=== PATIENT | female | born 2000 | race Caucasian/White ===

== ENCOUNTER 2018-11-22 10:58 | Emergency (ER) | payer OTHER ==
[2018-11-22 11:48] LABS: BASO % 1 % (0-3); EOS # 0.1 x10^3/uL (0.0-0.7); EOS % 2 % (0-3); HEMOGLOBIN 13.9 g/dL (12.0-15.5); LYMPH % 32 % (24-48); MEAN CORPUSCULAR HEMOGLOBIN 28 pg (25-35); MEAN CORPUSCULAR HGB CONC 33 g/dL (31-37); MEAN CORPUSCULAR VOLUME 85 fL (79-100); MONO # 0.5 x10^3/uL (0.0-1.1); MONO % 9 % (0-9); NEUT # 3.6 x10^3uL (1.8-7.7); NEUT % 57 % (31-73); PLATELET COUNT 235 x10^3/uL (140-400); RED BLOOD COUNT 4.96 x10^6/uL (3.50-5.40); RED CELL DISTRIBUTION WIDTH 13.5 % (11.5-14.5); WHITE BLOOD COUNT 6.2 x10^3/uL (4.0-11.0)
[2018-11-22] MEDS ORDERED: KETOROLAC 15 MG/ML VIAL. IVP ONE (11:55)
[2018-11-22 11:59] LABS: BACTERIA,URINE 0 /HPF (0-FEW); BILIRUBIN,URINE NEG (NEG); CLARITY,URINE CLEAR; COLOR,URINE YELLOW; GLUCOSE,URINE NEG (NEG); NITRITE,URINE NEG (NEG); SQUAMOUS EPITHELIAL CELL,UR FEW /LPF; UROBILINOGEN,URINE 0.2 mg/dL (0.2 mg/dL)
[2018-11-22 12:07] LABS: ALBUMIN 3.4 g/dL (3.4-5.0); ALBUMIN/GLOBULIN RATIO 0.9 (1.0-1.7); CALCIUM 8.6 mg/dL (8.5-10.1); CREATININE 0.7 mg/dL (0.6-1.0); GFR 106.7; MAGNESIUM 1.8 mg/dL (1.8-2.4); POTASSIUM 3.8 mmol/L (3.5-5.1); TOTAL BILIRUBIN 0.2 mg/dL (0.2-1.0); TOTAL PROTEIN 7.2 g/dL (6.4-8.2)
[2018-11-22] MEDS ORDERED: IOHEXOL 300 MG/ML 75 ML VIAL. IV ONE (12:15)
--- NOTE | 2018-11-22 12:34 | RAD ---
Study: CT abdomen/pelvis with intravenous contrast Indication: Right lower quadrant pain. Clinical concern for appendicitis. Comparison: None. Technique: Helical CT imaging performed of the abdomen and pelvis after the intravenous administration of contrast. Sagittal and coronal reformats were obtained. One or more of the following individualized dose reduction techniques were utilized for this examination: 1. Automated exposure control 2. Adjustment of the mA and/or kV according to patient size 3. Use of iterative reconstruction technique. Findings: Unremarkable lower lungs and visualized heart. Unremarkable liver, gallbladder, pancreas, adrenal glands and spleen. Unremarkable kidneys and collecting system. Tiny hypoattenuating foci at the anterior aspect of the urinary bladder, images 81 and 82 series 2. No significant bladder wall thickening. Unremarkable uterus given patient age. Right ovarian cystic focus, image 76 series 2, measuring 2.7 x 2.3 cm. Unremarkable left ovary. The colon and appendix are normal. The small bowel is normal. Unremarkable stomach and distal esophagus. Incidental note made of circumaortic left renal venous drainage. No free pelvic fluid. No free air. Transitional lumbosacral anatomy with a mostly lumbarized S1 vertebral body and a pseudoarticulation present on the right. Impression: 1. The appendix is normal. A relatively small right ovarian cyst measuring up to 2.7 cm is not unusual given patient age and there are no surrounding inflammatory changes. 2. Note is made of two adjacent punctate foci of low attenuation at the anterior aspect of the urinary bladder. Though too small to fully characterize, this could represent a tiny amount of air which can be associated with a urinary tract infection. Consider correlation with urinalysis. Electronically signed by: TORY RAINEY MD (11/22/2018 12:31 PM) [facility]
--- NOTE | 2018-11-22 13:04 | RAD ---
Transabdominal transvaginal sonography of the pelvis Clinical indications: Right pelvic pain. History of ovarian cysts. Transabdominal sonography: The uterus is anteverted in position. The longitudinal and AP and transverse dimensions of the uterus are 8.2 cm and 3.6 cm and 4.1 cm respectively. Endometrial canal is poorly visualized. Therefore transvaginal sonography will be performed. Right ovary measures 3.5 cm x 2.5 cm x 2.3 cm in size and there is a prominent cyst within it. The left ovary is poorly visualized by transabdominal exam. No free fluid is evident. Transvaginal sonography: The endometrial canal measures 11 mm in thickness. No uterine fibroid mass is seen. No free fluid is seen within the cul-de-sac. Left ovary measures 2.0 cm and 2.7 cm and 1.8 cm in size and is normal. Color Doppler flow is seen within left ovary. The right ovary measures up to 3.4 cm in greatest dimension. It contains a 2.2 cm cyst. Color Doppler flow is seen within the ovarian parenchyma around the cyst. No free fluid is evident. IMPRESSION: 2.2 cm right ovarian cyst. Electronically signed by: Hu Monk MD (11/22/2018 1:01 PM) [facility]
--- NOTE | 2018-11-22 13:43 | PHYS DOC ---
Past History Past Medical History: Anxiety, Bipolar, Depression, Other Additional Past Medical Histor: right ovarian cyst Past Surgical History: No Surgical History Smoking: Non-smoker Alcohol Use: None Drug Use: Marijuana Adult General Chief Complaint Chief Complaint: ABDOMINAL PAIN HPI HPI 18-year-old female presents with 2 day history of right lower quadrant abdominal pain. Reports associated nausea and vomiting. Denies fever. Denies dysuria or hematuria. Denies . Reports last menstrual period 10/07/18. Patient reports history of known right ovarian cyst. Denies vaginal discharge. Review of Systems Review of Systems Constitutional: Denies fever or chills Eyes: Denies redness or eye pain HENT: Denies nasal congestion or sore throat Respiratory: Denies cough or shortness of breath Cardiovascular: Denies chest pain or palpitations GI: Reports abdominal pain, nausea, and vomiting : Denies dysuria or hematuria Musculoskeletal: Denies back pain or joint pain Integument: Denies rash or skin lesions Neurologic: Denies headache, focal weakness or sensory changes Complete systems were reviewed and found to be within normal limits, except as documented in this note. Current Medications Current Medications Current Medications Medications (Trade) Dose Ordered Sig/Kayleigh Start Time Stop Time Status Last Admin Dose Admin Iohexol (Omnipaque 300 Mg/ml) 75 ml 1X ONCE 11/22/18 12:15 11/22/18 12:16 DC 11/22/18 12:09 75 ML Ketorolac Tromethamine (Toradol 15mg Vial) 15 mg 1X ONCE 11/22/18 11:55 11/22/18 11:56 DC 11/22/18 11:56 15 MG Allergies Allergies Allergies Coded Allergies Type Severity Reaction Last Updated Verified sulfamethoxazole Allergy Unknown Rash 11/22/18 Yes trimethoprim Allergy Unknown Rash 11/22/18 Yes Physical Exam Physical Exam Constitutional: Well developed, well nourished, no acute distress, non-toxic appearance HENT: Normocephalic, atraumatic, oropharynx moist Eyes: Conjunctiva normal, no discharge Neck: Normal range of motion, no tenderness, supple Cardiovascular: Heart rate normal, regular rhythm Lungs & Thorax: Bilateral breath sounds clear to auscultation, no wheezing Abdomen: Soft, RLQ tenderness, no guarding/rebound tenderness/distention Skin: Warm, dry, no erythema, no rash Back: No tenderness, no CVA tenderness Extremities: No tenderness, ROM intact, no edema Neurologic: Alert and oriented X 3, no focal deficits noted Psychologic: Affect normal, judgement normal Current Patient Data Vital Signs Vital Signs Date Time Temp Pulse Resp B/P (MAP) Pulse Ox O2 Delivery O2 Flow Rate FiO2 11/22/18 12:00 78 18 111/64 (80) 98 Room Air 11/22/18 11:06 98.4 Lab Results Laboratory Tests Test 11/22/18 11:20 11/22/18 11:29 11/22/18 11:33 Urine Collection Type Void Urine Color Yellow Urine Clarity Clear Urine pH 7.0 Urine Specific [place] 1.015 Urine Protein Neg (NEG-TRACE) Urine Glucose (UA) Neg mg/dL (NEG) Urine Ketones (Stick) Neg mg/dL (NEG) Urine Blood Trace (NEG) Urine Nitrite Neg (NEG) Urine Bilirubin Neg (NEG) Urine Urobilinogen Dipstick 0.2 mg/dL (0.2 mg/dL) Urine Leukocyte Esterase Neg (NEG) Urine RBC 1-2 /HPF (0-2) Urine WBC 1-4 /HPF (0-4) Urine Squamous Epithelial Cells Few /LPF Urine Bacteria 0 /HPF (0-FEW) POC Urine HCG, Qualitative hcg negative (Negative) White Blood Count 6.2 x10^3/uL (4.0-11.0) Red Blood Count 4.96 x10^6/uL (3.50-5.40) Hemoglobin 13.9 g/dL (12.0-15.5) Hematocrit 42.0 % (36.0-47.0) Mean Corpuscular Volume 85 fL (79-100) Mean Corpuscular Hemoglobin 28 pg (25-35) Mean Corpuscular Hemoglobin Concent 33 g/dL (31-37) Red Cell Distribution Width 13.5 % (11.5-14.5) Platelet Count 235 x10^3/uL (140-400) Neutrophils (%) (Auto) 57 % (31-73) Lymphocytes (%) (Auto) 32 % (24-48) Monocytes (%) (Auto) 9 % (0-9) Eosinophils (%) (Auto) 2 % (0-3) Basophils (%) (Auto) 1 % (0-3) Neutrophils # (Auto) 3.6 x10^3uL (1.8-7.7) Lymphocytes # (Auto) 2.0 x10^3/uL (1.0-4.8) Monocytes # (Auto) 0.5 x10^3/uL (0.0-1.1) Eosinophils # (Auto) 0.1 x10^3/uL (0.0-0.7) Basophils # (Auto) 0.0 x10^3/uL (0.0-0.2) Sodium Level 141 mmol/L (136-145) Potassium Level 3.8 mmol/L (3.5-5.1) Chloride Level 106 mmol/L (98-107) Carbon Dioxide Level 28 mmol/L (21-32) Anion Gap 7 (6-14) Blood Urea Nitrogen 7 mg/dL (7-20) Creatinine 0.7 mg/dL (0.6-1.0) Estimated GFR (Cockcroft-Gault) 106.7 BUN/Creatinine Ratio 10 (6-20) Glucose Level 80 mg/dL (70-99) Calcium Level 8.6 mg/dL (8.5-10.1) Magnesium Level 1.8 mg/dL (1.8-2.4) Total Bilirubin 0.2 mg/dL (0.2-1.0) Aspartate Amino Transferase (AST) 15 U/L (15-37) Alanine Aminotransferase (ALT) 19 U/L (14-59) Alkaline Phosphatase 79 U/L (46-116) Total Protein 7.2 g/dL (6.4-8.2) Albumin 3.4 g/dL (3.4-5.0) Albumin/Globulin Ratio 0.9 (1.0-1.7) L Lipase 203 U/L (73-393) EKG EKG [] Radiology/Procedures Radiology/Procedures PROCEDURE: US PELVIS W/TV Transabdominal transvaginal sonography of the pelvis Clinical indications: Right pelvic pain. History of ovarian cysts. Transabdominal sonography: The uterus is anteverted in position. The longitudinal and AP and transverse dimensions of the uterus are 8.2 cm and 3.6 cm and 4.1 cm respectively. Endometrial canal is poorly visualized. Therefore transvaginal sonography will be performed. Right ovary measures 3.5 cm x 2.5 cm x 2.3 cm in size and there is a prominent cyst within it. The left ovary is poorly visualized by transabdominal exam. No free fluid is evident. Transvaginal sonography: The endometrial canal measures 11 mm in thickness. No uterine fibroid mass is seen. No free fluid is seen within the cul-de-sac. Left ovary measures 2.0 cm and 2.7 cm and 1.8 cm in size and is normal. Color Doppler flow is seen within left ovary. The right ovary measures up to 3.4 cm in greatest dimension. It contains a 2.2 cm cyst. Color Doppler flow is seen within the ovarian parenchyma around the cyst. No free fluid is evident. IMPRESSION: 2.2 cm right ovarian cyst. Electronically signed by: Hu Monk MD (11/22/2018 1:01 PM) [facility] PROCEDURE: CT ABD PELV W/ IV CONTRST ONLY Study: CT abdomen/pelvis with intravenous contrast Indication: Right lower quadrant pain. Clinical concern for appendicitis. Comparison: None. Technique: Helical CT imaging performed of the abdomen and pelvis after the intravenous administration of contrast. Sagittal and coronal reformats were obtained. One or more of the following individualized dose reduction techniques were utilized for this examination: 1. Automated exposure control 2. Adjustment of the mA and/or kV according to patient size 3. Use of iterative reconstruction technique. Findings: Unremarkable lower lungs and visualized heart. Unremarkable liver, gallbladder, pancreas, adrenal glands and spleen. Unremarkable kidneys and collecting system. Tiny hypoattenuating foci at the anterior aspect of the urinary bladder, images 81 and 82 series 2. No significant bladder wall thickening. Unremarkable uterus given patient age. Right ovarian cystic focus, image 76 series 2, measuring 2.7 x 2.3 cm. Unremarkable left ovary. The colon and appendix are normal. The small bowel is normal. Unremarkable stomach and distal esophagus. Incidental note made of circumaortic left renal venous drainage. No free pelvic fluid. No free air. Transitional lumbosacral anatomy with a mostly lumbarized S1 vertebral body and a pseudoarticulation present on the right. Impression: 1. The appendix is normal. A relatively small right ovarian cyst measuring up to 2.7 cm is not unusual given patient age and there are no surrounding inflammatory changes. 2. Note is made of two adjacent punctate foci of low attenuation at the anterior aspect of the urinary bladder. Though too small to fully characterize, this could represent a tiny amount of air which can be associated with a urinary tract infection. Consider correlation with urinalysis. Electronically signed by: TORY RAINEY MD (11/22/2018 12:31 PM) [facility] Course & Med Decision Making Course & Med Decision Making Pertinent Labs and Imaging studies reviewed. (See chart for details) Patient presents with right lower quadrant abdominal pain with associated nausea and vomiting. Patient with history of known right ovarian cyst. Patient reports pain appears different than prior episodes. Pain/nausea addressed. IV fluid hydration given. Labs obtained and posted to chart. Pelvic ultrasound with findings consistent for right ovarian cyst without torsion. CT head/pelvis without acute process. Patient stable for discharge with outpatient follow-up with PCP/COMPUTER COMPOSITOR. Discussed findings and plan with patient, who acknowledges understanding and agreement. Dragon Disclaimer Dragon Disclaimer This electronic medical record was generated, in whole or in part, using a voice recognition dictation system. Departure Departure: Impression: Primary Impression: Ovarian cyst Disposition: HOME, SELF-CARE Condition: STABLE Referrals: PCP,UNKNOWN (PCP) Patient Instructions: Ovarian Cyst, [id number] Additional Instructions: Please use over the counter Tylenol and Ibuprofen for pain or discomfort as ne eded. Problem Qualifiers Primary Impression: Ovarian cyst Laterality: right Qualified Codes: N83.201 - Unspecified ovarian cyst, right side CESAR VEGA DO Nov 22, 2018 13:43
[2018-11-22 13:55] VITALS: BP 110/60
== END 2018-11-22 14:01 | disposition home or self-care (01) ==
LOC: ER 10:58
DX: N83.201 Unspecified ovarian cyst, right side (principal); Z79.899 Other long term (current) drug therapy; Z88.2 Allergy status to sulfonamides; Z88.1 Allergy status to other antibiotic agents
CPT/HCPCS: 36415; 74177; 76830; 76856; 80053; 81001; 81025; 83690; 83735; 85025; 96374; 99285; J1885; Q9967

== ENCOUNTER 2018-12-25 11:13 | Emergency (ER) | payer OTHER ==
[2018-12-25] MEDS ORDERED: IV NORMAL SALINE 1,000ML 1,000 ML IV ONE (11:45)
[2018-12-25 12:06] LABS: BASO % 1 % (0-3); EOS # 0.1 x10^3/uL (0.0-0.7); EOS % 1 % (0-3); HEMATOCRIT 44.2 % (36.0-47.0); HEMOGLOBIN 14.3 g/dL (12.0-15.5); LYMPH # 2.1 x10^3/uL (1.0-4.8); LYMPH % 33 % (24-48); MEAN CORPUSCULAR HEMOGLOBIN 28 pg (25-35); MEAN CORPUSCULAR HGB CONC 33 g/dL (31-37); MEAN CORPUSCULAR VOLUME 85 fL (79-100); MONO # 0.4 x10^3/uL (0.0-1.1); MONO % 7 % (0-9); NEUT # 3.8 x10^3uL (1.8-7.7); NEUT % 59 % (31-73); PLATELET COUNT 257 x10^3/uL (140-400); RED BLOOD COUNT 5.19 x10^6/uL (3.50-5.40); RED CELL DISTRIBUTION WIDTH 13.6 % (11.5-14.5); WHITE BLOOD COUNT 6.5 x10^3/uL (4.0-11.0)
[2018-12-25 12:21] LABS: ALBUMIN 3.7 g/dL (3.4-5.0); ALBUMIN/GLOBULIN RATIO 0.9 (1.0-1.7); CALCIUM 9.1 mg/dL (8.5-10.1); CREATININE 0.6 mg/dL (0.6-1.0); GFR 127.5; POTASSIUM 3.9 mmol/L (3.5-5.1); TOTAL BILIRUBIN 0.2 mg/dL (0.2-1.0)
[2018-12-25] MEDS ORDERED: hydrOXYzine HCL 10 MG TABLET PO STA (12:36)
[2018-12-25 12:38] LABS: AMPHETAMINE/METHAMPHETAMINE NEG (NEG); BARBITURATES NEG (NEG); BENZODIAZEPINES NEG (NEG); CANNABINOIDS NEG (NEG); COCAINE NEG (NEG); METHADONE NEG (NEG); OPIATES NEG (NEG); PHENCYCLIDINE NEG (NEG)
[2018-12-25] MEDS ORDERED: hydrOXYzine HCL 25 MG TABLET ONE (12:42)
[2018-12-25] MEDS ORDERED: hydrOXYzine HCL 25 MG TABLET PO STA (12:43)
[2018-12-25] MEDS ORDERED: ONDANSETRON ODT 4 MG TAB.RAPDIS ONE (12:44)
[2018-12-25] MEDS ORDERED: ONDANSETRON ODT 4 MG TAB.RAPDIS PO ONE (12:45)
--- NOTE | 2018-12-25 12:48 | PHYS DOC ---
Past History Past Medical History: Anxiety, Bipolar, Depression, Other Additional Past Medical Histor: right ovarian cyst Past Surgical History: No Surgical History Smoking: Non-smoker Alcohol Use: None Drug Use: Marijuana Adult General Chief Complaint Chief Complaint: DIZZY/LIGHT HEADED HPI HPI 18-year-old female presents with 2 day history of dizziness. The patient states that she started to feel lightheaded and off balance yesterday. This appeared to start out of nowhere. She has had intermittent episodes like this over the last several weeks, but they're less severe. She has not been doing anything different. She's been eating and drinking normally. She has not had any alcohol and 2 days. She only drinks once a week or less. She smoked marijuana one month ago. She vapes once a week. She has not noticed any association with food. She that she was hungry this morning when she had some nausea, but eating did not ma ke a difference to her symptoms. She has not been vomiting. Denies fever or chills. She is sexually active. Her last menses was one month ago. Review of Systems Review of Systems Constitutional: Denies fever or chills [] Eyes: Denies change in visual acuity, redness, or eye pain [] HENT: Denies nasal congestion or sore throat [] Respiratory: Denies cough or shortness of breath [] Cardiovascular: No additional information not addressed in HPI [] GI: Nausea. Denies abdominal pain, vomiting, bloody stools or diarrhea [] : Denies dysuria or hematuria [] Musculoskeletal: Denies back pain or joint pain [] Integument: Denies rash or skin lesions [] Neurologic: Dizziness. Denies headache, focal weakness or sensory changes [] Endocrine: Denies polyuria or polydipsia [] All other systems were reviewed and found to be within normal limits, except as documented in this note. Current Medications Current Medications Current Medications Medications (Trade) Dose Ordered Sig/Kayleigh Start Time Stop Time Status Last Admin Dose Admin Hydroxyzine HCl (Atarax) 25 mg STK-MED ONCE 12/25/18 12:42 12/25/18 12:42 DC Ondansetron HCl (Zofran Odt) 4 mg STK-MED ONCE 12/25/18 12:44 12/25/18 12:44 DC Sodium Chloride 1,000 ml @ 1,000 mls/hr 1X ONCE 12/25/18 11:45 12/25/18 12:44 DC 12/25/18 11:45 1,000 MLS/HR Allergies Allergies Allergies Coded Allergies Type Severity Reaction Last Updated Verified sulfamethoxazole Allergy Unknown Rash 11/22/18 Yes trimethoprim Allergy Unknown Rash 11/22/18 Yes Physical Exam Physical Exam Constitutional: Well developed, well nourished, no acute distress, non-toxic appearance. [] HENT: Normocephalic, atraumatic, bilateral external ears normal, oropharynx moist, no oral exudates, nose normal. [] Eyes: PERRLA, EOMI, conjunctiva normal, no discharge. [] Neck: Normal range of motion, no tenderness, supple, no stridor. [] Cardiovascular:Heart rate regular rhythm, no murmur [] Lungs & Thorax: Bilateral breath sounds clear to auscultation [] Abdomen: Bowel sounds normal, soft, no tenderness, no masses, no pulsatile masses. [] Skin: Warm, dry, no erythema, no rash. [] Back: No tenderness, no CVA tenderness. [] Extremities: No tenderness, no cyanosis, no clubbing, ROM intact, no edema. [] Neurologic: Alert and oriented X 3, normal motor function, normal sensory function, no focal deficits noted. [] Psychologic: Affect normal, judgement normal, mood normal. [] Current Patient Data Vital Signs Vital Signs Date Time Temp Pulse Resp B/P (MAP) Pulse Ox O2 Delivery O2 Flow Rate FiO2 12/25/18 11:13 98.1 67 18 96 Room Air Lab Results Laboratory Tests Test 12/25/18 11:51 12/25/18 11:55 12/25/18 11:58 White Blood Count 6.5 x10^3/uL (4.0-11.0) Red Blood Count 5.19 x10^6/uL (3.50-5.40) Hemoglobin 14.3 g/dL (12.0-15.5) Hematocrit 44.2 % (36.0-47.0) Mean Corpuscular Volume 85 fL (79-100) Mean Corpuscular Hemoglobin 28 pg (25-35) Mean Corpuscular Hemoglobin Concent 33 g/dL (31-37) Red Cell Distribution Width 13.6 % (11.5-14.5) Platelet Count 257 x10^3/uL (140-400) Neutrophils (%) (Auto) 59 % (31-73) Lymphocytes (%) (Auto) 33 % (24-48) Monocytes (%) (Auto) 7 % (0-9) Eosinophils (%) (Auto) 1 % (0-3) Basophils (%) (Auto) 1 % (0-3) Neutrophils # (Auto) 3.8 x10^3uL (1.8-7.7) Lymphocytes # (Auto) 2.1 x10^3/uL (1.0-4.8) Monocytes # (Auto) 0.4 x10^3/uL (0.0-1.1) Eosinophils # (Auto) 0.1 x10^3/uL (0.0-0.7) Basophils # (Auto) 0.0 x10^3/uL (0.0-0.2) Sodium Level 142 mmol/L (136-145) Potassium Level 3.9 mmol/L (3.5-5.1) Chloride Level 104 mmol/L (98-107) Carbon Dioxide Level 27 mmol/L (21-32) Anion Gap 11 (6-14) Blood Urea Nitrogen 10 mg/dL (7-20) Creatinine 0.6 mg/dL (0.6-1.0) Estimated GFR (Cockcroft-Gault) 127.5 BUN/Creatinine Ratio 17 (6-20) Glucose Level 84 mg/dL (70-99) Calcium Level 9.1 mg/dL (8.5-10.1) Total Bilirubin 0.2 mg/dL (0.2-1.0) Aspartate Amino Transferase (AST) 17 U/L (15-37) Alanine Aminotransferase (ALT) 21 U/L (14-59) Alkaline Phosphatase 89 U/L (46-116) Total Protein 8.0 g/dL (6.4-8.2) Albumin 3.7 g/dL (3.4-5.0) Albumin/Globulin Ratio 0.9 (1.0-1.7) L Urine Opiates Screen Neg (NEG) Urine Methadone Screen Neg (NEG) Urine Barbiturates Neg (NEG) Urine Phencyclidine Screen Neg (NEG) Urine Amphetamine/Methamphetamine Neg (NEG) Urine Benzodiazepines Screen Neg (NEG) Urine Cocaine Screen Neg (NEG) Urine Cannabinoids Screen Neg (NEG) Urine Ethyl Alcohol Neg (NEG) POC Urine HCG, Qualitative hcg negative (Negative) EKG EKG [] Radiology/Procedures Radiology/Procedures [] Course & Med Decision Making Course & Med Decision Making Pertinent Labs and Imaging studies reviewed. (See chart for details) The patient's labs are unremarkable. She was given normal saline and hydroxyzine. Lightheadedness is improved. I do not see any central cause for her dizziness. On examining her ears, she did have occlusive wax in the right ear. I was able to remove it with a lighted curet. She had improvement in hearing. I will discharge her with prescription for meclizine in case she has further symptoms. She will follow up with her primary physician as needed. She is stable for discharge at this time. [] Dragon Disclaimer Dragon Disclaimer This electronic medical record was generated, in whole or in part, using a voice recognition dictation system. Departure Departure: Impression: Primary Impression: Dizziness Additional Impression: Impacted cerumen of right ear Disposition: 01 HOME, SELF-CARE Condition: IMPROVED Referrals: ISIAH JUSTICE DO (PCP) Patient Instructions: Dizziness, [id number] Scripts Meclizine Hcl (MECLIZINE HCL) 12.5 Mg Tablet 1 TAB PO TID PRN for DIZZINESS, #30 TAB Prov: GRICELDA ANDRES DO 12/25/18 Problem Qualifiers GRICELDA ANDRES DO Dec 25, 2018 12:48
[2018-12-25 13:04] LABS: BACTERIA,URINE FEW /HPF (0-FEW); BILIRUBIN,URINE NEG (NEG); CLARITY,URINE HAZY; COLOR,URINE YELLOW; GLUCOSE,URINE NEG (NEG); NITRITE,URINE NEG (NEG); SQUAMOUS EPITHELIAL CELL,UR MOD /LPF; UROBILINOGEN,URINE 0.2 mg/dL (0.2 mg/dL); WBC,URINE RARE /HPF (0-4)
[2018-12-25] MEDS ORDERED: MECL12.52 PO (14:09)
[2018-12-25 14:23] VITALS: BP 105/70
== END 2018-12-25 14:27 | disposition home or self-care (01) ==
LOC: ER 11:13
DX: R42 Dizziness and giddiness (principal); H61.21 Impacted cerumen, right ear; Z88.1 Allergy status to other antibiotic agents; Z88.2 Allergy status to sulfonamides
CPT/HCPCS: 36415; 69210; 80053; 80307; 81001; 81025; 85025; 96360; 99284; Q0162; J7030

== ENCOUNTER 2019-03-27 03:13 | Emergency (ER) | payer OTHER ==
[~2019-03-27] VITALS: Ht 157.5 cm; Wt 81.3 kg
[~2019-03-27 03:13] MED LIST: MECL12.573 PO
--- NOTE | 2019-03-27 03:41 | PHYS DOC ---
Past History Past Medical History: Anxiety, Bipolar, Depression, Other Additional Past Medical Histor: right ovarian cyst Past Surgical History: No Surgical History Smoking: Non-smoker Alcohol Use: Rarely Drug Use: Marijuana Adult General Chief Complaint Chief Complaint: ABDOMINAL PAIN.." I am having pain around my belly button area... ".." And my period has not started.. " "... I also have not had a stool..." HPI HPI Patient is a 18 year old female who presents with above hx and complaints of abdomen at her umbilicus. Patient concerned she may be . Patient also admits to no specific stool in the last couple days. Patient concerned because her period is not started. No history immunosuppression. No history of bad food intake. No history of travel. No history of trauma. Pain is localized around the umbilicus. No vaginal discharge. Has had ovarian cysts in past. Review of Systems Review of Systems Constitutional: Denies fever or chills [] Eyes: Denies change in visual acuity, redness, or eye pain [] HENT: Denies nasal congestion or sore throat [] Respiratory: Denies cough or shortness of breath [] Cardiovascular: No additional information not addressed in HPI [] GI: Has complaints of colitis abdominal pain, nausea. And constipation. Denies vomiting, bloody stools or diarrhea [] : Denies dysuria or hematuria [] Musculoskeletal: Denies back pain or joint pain [] Integument: Denies rash or skin lesions [] Neurologic: Denies headache, focal weakness or sensory changes [] Endocrine: Denies polyuria or polydipsia [] All other systems were reviewed and found to be within normal limits, except as documented in this note. Family History Family History Noncontributory Current Medications Current Medications See nursing for home meds Allergies Allergies Allergies Coded Allergies Type Severity Reaction Last Updated Verified sulfamethoxazole Allergy Unknown Rash 11/22/18 Yes trimethoprim Allergy Unknown Rash 11/22/18 Yes Physical Exam Physical Exam Constitutional: no acute distress, non-toxic appearance. [] HENT: Normocephalic, atraumatic, bilateral external ears normal, oropharynx moist, no oral exudates, nose normal. [] Eyes: PERRLA, EOMI, conjunctiva normal, no discharge. [] Neck: Normal range of motion, no tenderness, supple, no stridor. [] Cardiovascular:Heart rate regular rhythm, no murmur [] Lungs & Thorax: Bilateral breath sounds clear to auscultation [] Abdomen: Bowel sounds normal, soft, mild tenderness at umbilicus, no masses, no pulsatile masses. Abdomen very distended. No true rebound pain Skin: Warm, dry, no erythema, no rash. [] Back: No tenderness, no CVA tenderness. [] Extremities: No tenderness, no cyanosis, no clubbing, ROM intact, no edema. No psoas sign. Is able to jump up and down without pain Neurologic: Alert and oriented X 3, normal motor function, normal sensory function, no focal deficits noted. [] Psychologic: Affect anxious, judgement normal, mood normal. [] Current Patient Data Vital Signs Vital Signs Date Time Temp Pulse Resp B/P (MAP) Pulse Ox O2 Delivery O2 Flow Rate FiO2 03/27/19 03:26 97.9 85 16 123/71 (88) 97 Room Air EKG EKG [] Radiology/Procedures Radiology/Procedures [][address] [address] IMAGING REPORT Signed PATIENT: YECENIA COLLINS ACCOUNT: [id number] : 09/21/1981 LOCATION: ER AGE: 37 SEX: F EXAM STATUS: REG ER ORD. PHYSICIAN: JOSÉ ANTONIO WEEKS MD REASON: pain PROCEDURE: ACUTE ABDOMEN SERIES Examination: ACUTE ABDOMEN SERIES History: Pain Comparison/Correlation: None Findings: Frontal view of the chest was obtained. Supine and upright views of the abdomen were obtained. Frontal view chest was obtained. Heart size and pulmonary vasculature are normal. No infiltrate or pleural effusion. Supine and upright views of the abdomen were obtained. Right upper quadrant surgical clips are present. No extraluminal gas. Moderate quantity of stool is present in the colon. No obstruction. No suspicious abdominal calcifications. Calcific densities within soft tissues lateral to the right iliac bone. This is of indeterminate significance and may represent an injection granuloma. Impression: No infiltrate. No obstruction. Electronically signed by: Preston Andersen MD (03/28/2019 7:53 AM) [id number] DICTATED AND SIGNED BY: PRESTON ANDERSEN MD DATE: 03/28/19 0753 CC: JOSÉ ANTONIO WEEKS MD; SERVANDO VEGA-Sanjeev ~ Course & Med Decision Making Course & Med Decision Making Pertinent Labs and Imaging studies reviewed. (See chart for details) Patient to take Tylenol and ibuprofen for pain. Patient push fluids. Patient follow-up with primary care. Patient expect some cramping with passage of stool burden. Must have re exam if no improvement of pain. Patient to remain on a clear fluid diet only no solids no milk products clear fluids to allow bowel rest. After passage of stool and no improvement pain must have re exam Impression: 1. Concerned she is because late period 2. Constipation [] Dragon Disclaimer Dragon Disclaimer This electronic medical record was generated, in whole or in part, using a voice recognition dictation system. Departure Departure: Disposition: 01 HOME/RESIDENCE PRIOR TO ADM Condition: STABLE Referrals: ISIAH JUSTICE DO (PCP) Oj Disclaimer This chart was dictated in whole or in part using Voice Recognition software in a busy, high-work load, and often noisy Emergency Department environment. It may contain unintended and wholly unrecognized errors or omissions. JOSÉ ANTONIO WEEKS MD Mar 27, 2019 03:41
[2019-03-27 04:17] LABS: U PREG PATIENT NEGATIVE (NEG)
[2019-03-27 04:18] LABS: BARBITURATES NEG (NEG); BENZODIAZEPINES NEG (NEG); CANNABINOIDS NEG (NEG); COCAINE NEG (NEG); METHADONE NEG (NEG); OPIATES NEG (NEG); PHENCYCLIDINE NEG (NEG)
[2019-03-27 04:20] LABS: AMPHETAMINE/METHAMPHETAMINE NEG (NEG)
[2019-03-27 04:30] LABS: BILIRUBIN,URINE NEG (NEG); CLARITY,URINE HAZY; COLOR,URINE YELLOW; GLUCOSE,URINE NEG (NEG)
[2019-03-27 04:31] LABS: BACTERIA,URINE MOD /HPF (0-FEW); NITRITE,URINE NEG (NEG); RBC,URINE OCC /HPF (0-2); SQUAMOUS EPITHELIAL CELL,UR MOD /LPF
--- NOTE | 2019-03-27 04:45 | RAD ---
INDICATION: Abdomen pain COMPARISON: November 22, 2018 IMPRESSION: Abdomen: 3 views of chest and abdomen obtained. Hypoexpanded exam of the chest with no definite focal airspace consolidation. Moderate stool within the right side of the colon. Air scattered throughout large and small bowel in a grossly nonobstructive pattern. Electronically signed by: Ari Rodriguez MD (03/27/2019 4:42 AM) [id number]
[2019-03-27] MEDS ORDERED: ACETAMINOPHEN 500 MG TABLET PO ONE (05:00)
[2019-03-27] MEDS ORDERED: MAGNESIUM HYDROXIDE 2,400 MG/30 ML ORAL.SUSP. PO ONE (05:00)
[2019-03-27] MEDS ORDERED: MAGNESIUM CITRATE 296 ML SOLUTION. PO ONE (05:30)
[2019-03-27 05:39] LABS: INFLUENZA A PATIENT NEGATIVE (NEGATIVE); INFLUENZA B PATIENT NEGATIVE (NEGATIVE)
[2019-03-27 05:56] VITALS: BP 115/62
== END 2019-03-27 05:58 | disposition home or self-care (01) ==
LOC: ER 03:13
DX: K59.00 Constipation, unspecified (principal); Z88.2 Allergy status to sulfonamides; Z88.8 Allergy status to other drugs, medicaments and biological substances
CPT/HCPCS: 36415; 74022; 80307; 81001; 81025; 87086; 87186; 87804; 99284

== ENCOUNTER 2019-05-18 23:05 | Emergency (ER) | payer OTHER ==
[~2019-05-18] VITALS: Ht 157.5 cm; Wt 81.3 kg
--- NOTE | 2019-05-18 23:18 | PHYS DOC ---
Past History Past Medical History: Anxiety, Bipolar, Depression, Other Additional Past Medical Histor: right ovarian cyst Past Surgical History: No Surgical History Smoking: Non-smoker Alcohol Use: Rarely Drug Use: Marijuana General Adult EDM: Chief Complaint: ABDOMINAL PAIN HPI: HPI: ",, I ve been having some abdomen pain the past two weeks.. it not gone away.. my breast are so tended.. and I ve missed my period.. I think am about 5 or six week ...." Patient is a 18 year old female who presents with above hx and complaints of ab domen pain. Patient has history of 2 pregnancies previous resulted miscarriage. Miscarriage occurred approximately 4 months. Patient did receive RhoGam with previous . Patient thinks she is approximately one 1/2 months . Patient complaining of generalized lower pelvic pain and tender breast. Patient did eat a hot pocket approximately hour before presents emergency department. Patient states she has had abdomen pain for approximately 2 weeks. No history of STDs. 4 lifetime sex partners. No history of trauma. No history of bad food. Patient is on city water. No contact with sick animals. Patient does not do flu vaccination. Patient does take a vitamin.. Pt. follows with Dr. Gideon Hussein. Review of Systems: Review of Systems: Constitutional: Denies fever or chills Eyes: Denies change in visual acuity HENT: Denies nasal congestion or sore throat Respiratory: Denies cough or shortness of breath Cardiovascular: Denies chest pain or edema GI: Complains of lower abdominal pain, nausea, for the past 2 weeks. Patient denies vomiting, bloody stools or diarrhea : Denies dysuria Musculoskeletal: Denies back pain or joint pain Integument: Denies rash Neurologic: Denies headache, focal weakness or sensory changes Endocrine: Denies polyuria or polydipsia Lymphatic: Denies swollen glands Psychiatric: Denies depression or anxiety Heart Score: Risk Factors: Risk Factors: DM, Current or recent (<one month) smoker, HTN, HLP, family history of CAD, obesity. Risk Scores: Score 0 - 3: 2.5% MACE over next 6 weeks - Discharge Home Score 4 - 6: 20.3% MACE over next 6 weeks - Admit for Clinical Observation Score 7 - 10: 72.7% MACE over next 6 weeks - Early Invasive Strategies Family History: Family History: Noncontributory to presentation Current Medications: Current Meds: See nursing for home meds Allergies: Allergies: Allergies Coded Allergies Type Severity Reaction Last Updated Verified sulfamethoxazole Allergy Unknown Rash 11/22/18 Yes trimethoprim Allergy Unknown Rash 11/22/18 Yes Physical Exam: PE: Constitutional: Moderate acute distress, non-toxic appearance. [] HENT: Normocephalic, atraumatic, bilateral external ears normal, oropharynx m oist, no oral exudates, nose normal. Red Marcelle hair Eyes: PERRLA, EOMI, conjunctiva normal, no discharge. [] Neck: Normal range of motion, no tenderness, supple, no stridor. [] Cardiovascular:Heart rate regular rhythm, no murmur [] Lungs & Thorax: Bilateral breath sounds equal at apex auscultation [] Abdomen: Bowel sounds normal, soft, no tenderness, no masses, no pulsatile masses. Lower pelvic tenderness. No bleeding from office. Does have cervical motion tenderness and discharge. Skin: Warm, dry, no erythema, no rash. [] Back: No tenderness, no CVA tenderness. [] Extremities: No tenderness, no cyanosis, no clubbing, ROM intact, no edema. [] Neurologic: Alert and oriented X 3, normal motor function, normal sensory function, no focal deficits noted. [] DTRs +2 patellar and brachial. Psychologic: Affect anxious, judgement normal, mood normal. [] EKG: EKG: [] Radiology/Procedures: Radiology/Procedures: [][place] [address] IMAGING REPORT Signed PATIENT: JAMES WARE ACCOUNT: [id number] : 2000 LOCATION: ER AGE: 18 SEX: F EXAM STATUS: REG ER ORD. PHYSICIAN: JOSÉ ANTONIO WEEKS MD REASON: preg. , abd. pain PROCEDURE: PREG 1ST TRIMESTER CLINICAL HISTORY: , abdominal pain COMPARISON: None available. TECHNIQUE: transabdominal and endovaginal sonography was performed FINDINGS: An intrauterine gestational sac is present. An embryo is identified .Cardiac activity is visualized and documented at a rate of 101 beats per minute. Trace subchorionic fluid collection. Based on a crown rump length averaging 0.21 cm, the estimated gestational age is 5 weeks, 5 days. Estimated date of delivery is 01/14/2020. The right ovary measures 2.2 x 1.8 x 1.6 cm. Left ovary measures 2.7 x 2.1 x 1.8 cm. Left ovarian cystic structure, likely corpus luteum cyst. There is no pelvic free fluid. IMPRESSION: 1. Single live intrauterine gestation with mean sonographic age of 5 weeks,5 days. The estimated date of delivery is 01/14/2020. Trace subchorionic collection may represent trace of chronic hemorrhage. heart rate measures 101 bpm. Short interval ultrasound follow-up is recommended. 2. No abnormal adnexal masses Electronically signed by: Jose Alicea MD (05/19/2019 1:49 AM) [facility] DICTATED AND SIGNED BY: JOSE ALICEA MD DATE: 05/19/19 0149 CC: JOSÉ ANTONIO WEEKS MD; GIDEON HUSSEIN DO ~ Course & Med Decision Making: Course & Med Decision Making Pertinent Labs and Imaging studies reviewed. (See chart for details) Patient continue vitamins. Patient follow-up with primary care. Patient follow-up pending cultures. Partner should also be treated for STD. Take Keflex 500 mg 3 times a day for urinary tract infection. Patient should practice safe sex. Patient only take Tylenol for pain. Impression: 1. Abdomen pain 2. Gravid x2-1 miscarriage 3. Beta-hCG is 15,281 4. Hemoglobin 13.2 5 . Blood type A+ 6. Urinary tract infection 7. Trichomonas Infection, yeast and Clue Cells. 8. IUP 5 Weeks and 5 days EST 01/14/2020 [] Dragon Disclaimer: Dragon Disclaimer: This electronic medical record was generated, in whole or in part, using a voice recognition dictation system. Departure Departure: Disposition: HOME/RESIDENCE PRIOR TO ADM Condition: STABLE Referrals: GIDEON HUSSEIN DO (PCP) Scripts Fluconazole (DIFLUCAN) 100 Mg Tablet 100 MG PO DAILY for yeast for 1 Day, #1 TAB Prov: JOSÉ ANTONIO WEEKS MD 05/19/19 Cephalexin (KEFLEX) 500 Mg Capsule 500 MG PO TID for uti for 10 Days, BOTTLE Prov: JOSÉ ANTONIO WEEKS MD 05/19/19 Oj Disclaimer This chart was dictated in whole or in part using Voice Recognition software in a busy, high-work load, and often noisy Emergency Department environment. It may contain unintended and wholly unrecognized errors or omissions. JOSÉ ANTONIO WEEKS MD May 18, 2019 23:18
[2019-05-18] MEDS ORDERED: FAMOTIDINE 20 MG/2 ML VIAL IVP ONE (23:30)
[2019-05-18] MEDS ORDERED: ONDANSETRON PF 4 MG/2 ML VIAL. IVP ONE (23:30)
[2019-05-18] MEDS ORDERED: IV RINGERS SOLUTION,LACTATED 1,000 ML IV SCH (23:30)
[2019-05-18 23:52] LABS: BASO % 0 % (0-3); EOS # 0.1 x10^3/uL (0.0-0.7); EOS % 1 % (0-3); HEMATOCRIT 39.5 % (36.0-47.0); HEMOGLOBIN 13.2 g/dL (12.0-15.5); LYMPH % 36 % (24-48); MEAN CORPUSCULAR HEMOGLOBIN 28 pg (25-35); MEAN CORPUSCULAR HGB CONC 34 g/dL (31-37); MEAN CORPUSCULAR VOLUME 85 fL (79-100); MONO # 0.5 x10^3/uL (0.0-1.1); MONO % 6 % (0-9); NEUT # 4.7 x10^3uL (1.8-7.7); NEUT % 57 % (31-73); PLATELET COUNT 272 x10^3/uL (140-400); RED BLOOD COUNT 4.65 x10^6/uL (3.50-5.40); RED CELL DISTRIBUTION WIDTH 13.9 % (11.5-14.5); WHITE BLOOD COUNT 8.2 x10^3/uL (4.0-11.0)
[2019-05-18 23:56] LABS: ANION GAP 9 (6-14); BLOOD UREA NITROGEN 8 mg/dL (7-20); CALCIUM 8.7 mg/dL (8.5-10.1); CARBON DIOXIDE 28 mmol/L (21-32); CHLORIDE 103 mmol/L (98-107); CREATININE 0.6 mg/dL (0.6-1.0); GFR 127.5; GLUCOSE 87 mg/dL (70-99); POTASSIUM 3.1 mmol/L (3.5-5.1); SODIUM 140 mmol/L (136-145)
[2019-05-18 23:58] LABS: AMPHETAMINE/METHAMPHETAMINE NEG (NEG); BARBITURATES NEG (NEG); BENZODIAZEPINES NEG (NEG); CANNABINOIDS NEG (NEG); COCAINE NEG (NEG); METHADONE NEG (NEG); OPIATES POS (NEG); PHENCYCLIDINE NEG (NEG)
[2019-05-19 00:03] LABS: ALBUMIN 3.6 g/dL (3.4-5.0); ALK PHOS 70 U/L (46-116); ALT (SGPT) 27 U/L (14-59); AMYLASE 42 U/L (25-115); AST (SGOT) 18 U/L (15-37); DIRECT BILIRUBIN < 0.1 mg/dL (0.0-0.2); LIPASE 177 U/L (73-393); TOTAL BILIRUBIN 0.1 mg/dL (0.2-1.0); TOTAL PROTEIN 7.3 g/dL (6.4-8.2)
[2019-05-19 00:08] LABS: BACTERIA,URINE MANY /HPF (0-FEW); BILIRUBIN,URINE NEG (NEG); CLARITY,URINE CLOUDY; COLOR,URINE YELLOW; GLUCOSE,URINE NEG (NEG); NITRITE,URINE NEG (NEG); SQUAMOUS EPITHELIAL CELL,UR MOD /LPF; UROBILINOGEN,URINE 0.2 mg/dL (0.2 mg/dL); WBC,URINE >40 /HPF (0-4)
[2019-05-19] MEDS: AZITHROMYCIN 500 MG in IV NORMAL SALINE 250ML 250 ML IV ONE ×2 (01:30→02:33)
--- NOTE | 2019-05-19 01:52 | RAD ---
CLINICAL HISTORY: , abdominal pain COMPARISON: None available. TECHNIQUE: transabdominal and endovaginal sonography was performed FINDINGS: An intrauterine gestational sac is present. An embryo is identified .Cardiac activity is visualized and documented at a rate of 101 beats per minute. Trace subchorionic fluid collection. Based on a crown rump length averaging 0.21 cm, the estimated gestational age is 5 weeks, 5 days. Estimated date of delivery is 01/14/2020. The right ovary measures 2.2 x 1.8 x 1.6 cm. Left ovary measures 2.7 x 2.1 x 1.8 cm. Left ovarian cystic structure, likely corpus luteum cyst. There is no pelvic free fluid. IMPRESSION: 1. Single live intrauterine gestation with mean sonographic age of 5 weeks,5 days. The estimated date of delivery is 01/14/2020. Trace subchorionic collection may represent trace of chronic hemorrhage. heart rate measures 101 bpm. Short interval ultrasound follow-up is recommended. 2. No abnormal adnexal masses Electronically signed by: Jose Hackett MD (05/19/2019 1:49 AM) RUI
[2019-05-19] MEDS ORDERED: IV NORMAL SALINE 250ML 250 ML ONE (02:28)
[2019-05-19] MEDS ORDERED: cefTRIAXone SODIUM 1 GM VIAL ONE (02:28)
[2019-05-19] MEDS ORDERED: AZITHROMYCIN 500 MG VIAL. IV ONE (02:28)
[2019-05-19] MEDS ORDERED: IV NORMAL SALINE 50ML 50 ML ONE (02:28)
[2019-05-19] MEDS ORDERED: CEPH-264 PO (02:28)
[2019-05-19] MEDS ORDERED: FLUC100T7 PO (02:39)
[2019-05-19] MEDS ORDERED: metroNIDAZOLE 500 MG TABLET PO ONE ×2 (03:00)
[2019-05-19] MEDS ORDERED: AZITHROMYCIN 250 MG TABLET. PO ONE ×2 (03:00)
[2019-05-19] MEDS ORDERED: ONDANSETRON PF 4 MG/2 ML VIAL. IVP ONE (03:30)
[2019-05-19 04:20] VITALS: BP 151/78
[2019-05-20 16:07] LABS: CHLAMYDIA PROBE Negative (Negative)
== END 2019-05-19 05:00 | disposition home or self-care (01) ==
LOC: ER 23:05
DX: O23.41 Unspecified infection of urinary tract in pregnancy, first trimester (principal); O98.811 Other maternal infectious and parasitic diseases complicating pregnancy, first trimester; A59.09 Other urogenital trichomoniasis; Z3A.01 Less than 8 weeks gestation of pregnancy; Z88.1 Allergy status to other antibiotic agents; Z88.2 Allergy status to sulfonamides
CPT/HCPCS: 36415; 36430; 76801; 80048; 80076; 80307; 81001; 81025; 82150; 83690; 84443; 84702; 85025; 85610; 85730; 86592; 86850; 86900; 86901; 87086; 87491; 87591; 96374; 96375; 96376; 99285; J0456; J0696; J2405; J2791; J3490; J7120; Q0111; J7050

== ENCOUNTER 2019-05-26 19:30 | Emergency (ER) | payer OTHER ==
[~2019-05-26] VITALS: Ht 157.5 cm; Wt 81.3 kg
[2019-05-26 19:30] VITALS: BP 120/71
[~2019-05-26 19:30] MED LIST changes: +CEPH-264 PO; +FLUC100T7 PO
[2019-05-26] MEDS ORDERED: ONDA4TAB12 PO (20:13)
--- NOTE | 2019-05-26 20:14 | PHYS DOC ---
Past History Past Medical History: Anxiety, Bipolar, Depression, GERD, Other Additional Past Medical Histor: right ovarian cyst Past Surgical History: No Surgical History Smoking: Non-smoker Alcohol Use: Rarely Drug Use: Marijuana General Adult EDM: Chief Complaint: MULTIPLE COMPLAINTS HPI: HPI: 18-year-old female presents with nausea, sore throat and general ill feeling. The patient is just over 6 weeks . She has not seen her OB yet. She has had some low-level nausea for a couple weeks, but today it is much worse. She has been trying to drink water. She has had no vomiting. She did have one mild loose stool today. She has had some increasing sore throat, but it is mild to moderate in intensity. She is having no difficulty swallowing. No fever or chills at home. Her primary concern is the persistent nausea. She has tried Unisom at home. Review of Systems: Review of Systems: Constitutional: Denies fever or chills Eyes: Denies change in visual acuity HENT: sore throat Respiratory: Denies cough or shortness of breath Cardiovascular: Denies chest pain or edema GI: Nausea. Denies abdominal pain, vomiting, bloody stools or diarrhea : Denies dysuria Musculoskeletal: Denies back pain or joint pain Integument: Denies rash Neurologic: Denies headache, focal weakness or sensory changes Endocrine: Denies polyuria or polydipsia Lymphatic: Denies swollen glands Psychiatric: Denies depression or anxiety Heart Score: Risk Factors: Risk Factors: DM, Current or recent (<one month) smoker, HTN, HLP, family history of CAD, obesity. Risk Scores: Score 0 - 3: 2.5% MACE over next 6 weeks - Discharge Home Score 4 - 6: 20.3% MACE over next 6 weeks - Admit for Clinical Observation Score 7 - 10: 72.7% MACE over next 6 weeks - Early Invasive Strategies Allergies: Allergies: Allergies Coded Allergies Type Severity Reaction Last Updated Verified sulfamethoxazole Allergy Unknown Rash 11/22/18 Yes trimethoprim Allergy Unknown Rash 11/22/18 Yes Physical Exam: PE: Constitutional: Well developed, well nourished, no acute distress, non-toxic appearance. [] HENT: Normocephalic, atraumatic, bilateral external ears normal, tonsils without erythema or exudate, nose normal. Cold sore on upper lip [] Eyes: PERRLA, EOMI, conjunctiva normal, no discharge. [] Neck: Normal range of motion, no tenderness, supple, no stridor. [] Cardiovascular: Heart rate regular rhythm, no murmur [] Lungs & Thorax: Bilateral breath sounds clear to auscultation [] Abdomen: Bowel sounds normal, soft, no tenderness, no masses, no pulsatile masses. [] Skin: Warm, dry, no erythema, no rash. [] Back: No tenderness, no CVA tenderness. [] Extremities: No tenderness, no cyanosis, no clubbing, ROM intact, no edema. [] Neurologic: Alert and oriented X 3, normal motor function, normal sensory function, no focal deficits noted. [] Psychologic: Affect normal, judgement normal, mood normal. [] EKG: EKG: [] Radiology/Procedures: Radiology/Procedures: [] Course & Med Decision Making: Course & Med Decision Making Pertinent Labs and Imaging studies reviewed. (See chart for details) The patient's exam is unremarkable. I believe she is likely a little dehydrated. We will give her Zofran ODT for her nausea. I will also discharge her with a prescription for the same. I have discussed with her a stepwise approach to nausea in and stressed the importance of hydration. She is stated verbal understanding. She is stable for discharge at this time. [] Oj Disclaimer: Oj Disclaimer: This electronic medical record was generated, in whole or in part, using a voice recognition dictation system. Departure Departure: Impression: Primary Impression: Qualified Codes: Z3A.01 - Less than 8 weeks gestation of Additional Impression: Nausea Disposition: HOME, SELF-CARE Condition: STABLE Referrals: ISIAH JUSTICE DO (PCP) Patient Instructions: Nausea, Adult, [id number], - First Trimester, [id number] Scripts Ondansetron (ONDANSETRON ODT) 4 Mg Tab.rapdis 1 TAB PO PRN Q6-8HRS PRN for VOMITING, #16 TAB Prov: GRICELDA ANDRES DO 05/26/19 GRICELDA ANDRES DO May 26, 2019 20:14
[2019-05-26] MEDS ORDERED: ONDANSETRON ODT 4 MG TAB.RAPDIS PO ONE ×2 (20:15→20:30)
== END 2019-05-26 20:15 | disposition home or self-care (01) ==
LOC: ER 19:30
DX: O99.511 Diseases of the respiratory system complicating pregnancy, first trimester (principal); R11.0 Nausea; J02.9 Acute pharyngitis, unspecified; K21.9 Gastro-esophageal reflux disease without esophagitis; Z3A.01 Less than 8 weeks gestation of pregnancy; Z88.2 Allergy status to sulfonamides; Z88.1 Allergy status to other antibiotic agents
CPT/HCPCS: 99283; Q0162